=== PATIENT | male | born 1985 | race Two or more races ===

== ENCOUNTER 2024-11-30 12:45 | Emergency (ER) | payer SELFPAY ==
[~2024-11-30] VITALS: Ht 167.6 cm; Wt 68.0 kg
[2024-11-30 12:45] VITALS: BP 134/90; PULSE 84; RESP 18; TEMP 98.6; O2SAT 94
[2024-11-30] MEDS ORDERED: TORADOL ONE (13:27)
[2024-11-30] MEDS: TORADOL IM STA (13:30)
== END 2024-11-30 13:33 | disposition home or self-care (01) ==
LOC: ER 12:45
DX: M79.661 Pain in right lower leg (principal); M62.831 Muscle spasm of calf
CPT/HCPCS: 99283; 96372; J1885